=== PATIENT | male | born 1960 | race Caucasian/White ===

== ENCOUNTER 2016-10-29 12:31 | Emergency (ER) | payer OTHER ==
[2016-10-29 13:17] VITALS: TEMP 98.2
[2016-10-29] MEDS ORDERED: SODIUM CHLORIDE 0.9% 1,000 ML IV STA (14:27)
[2016-10-29] MEDS ORDERED: SODIUM CHLORIDE 0.9% 500 ML IV STA (14:27)
[2016-10-29] MEDS ORDERED: PANTOPRAZOLE 40 MG/10 ML VIAL IVP STA (14:27)
[2016-10-29] MEDS ORDERED: ONDANSETRON 4 MG/2 ML VIAL IVP STA (14:27)
[2016-10-29 15:46] LABS: Basophils # (A) 0.2 k/uL (0-0.2); Basophils % (A) 2 %; CHCM 35.3; Eosinophils # (A) 0.2 k/uL (0-0.7); Eosinophils % (A) 2 %; HCT 53.3 % (39.0-53.0); HDW 2.19; HGB 18.3 gm/dL (13.0-17.5); Luc # (Auto) 0.15; Luc % (Auto) 2; Lymphocytes # (A) 1.5 k/uL (1.0-4.8); Lymphocytes % (A) 15 %; MCH 32.3 pg (25.0-35.0); MCHC 34.3 g/dL (31.0-37.0); MCV 94.1 fL (80.0-100.0); Mean Platelet Volume 6.4; Monocytes # (A) 0.6 k/uL (0-1.0); Monocytes % (A) 6 %; Neutrophils # (A) 7.6 k/uL (1.3-7.7); Neutrophils % (A) 74 %; RBC 5.66 m/uL (4.30-5.90); RDW 13.3 % (11.5-15.5); WBC 10.2 k/uL (3.8-10.6); WBC (Perox) 9.85
--- NOTE | 2016-10-29 15:52 | ED ---
General Adult HPI - General Chief complaint: GI Bleed Stated complaint: Male Time Seen by Provider: 10/29/16 14:27 Source: patient, RN notes reviewed, old records reviewed Mode of arrival: ambulatory Limitations: no limitations - History of Present Illness Initial comments: This is a 56-year-old male here for evaluation of possible GI bleed. Blood in her stool. Patient's blood there is no prior history of similar issues. No history of colonoscopy. Patient states he does occasionally of hemorrhoids, consider anemia a bleeding hemorrhoid. Patient states he is having bright red blood mainly when he wipes but also in his stool. No lightheadedness dizziness or weakness - Related Data Home Medications Medication Instructions Recorded Confirmed Albuterol Inhaler [Ventolin Hfa 1 - 2 puff INHALATION RT-Q6H PRN 10/29/16 Inhaler] Budesonide/Formoterol Fumarate 2 puff INHALATION RT-BID 10/29/16 10/29/16 [Symbicort 160-4.5 Mcg Inhaler] Omeprazole 20 mg PO DAILY 10/29/16 10/29/16 Allergies Allergy/AdvReac Type Severity Reaction Status Date / Time No Known Allergies Allergy Verified 10/29/16 14:27 Review of Systems ROS Statement: Those systems with pertinent positive or pertinent negative responses have been documented in the HPI. ROS Other: All systems not noted in ROS Statement are negative. Past Medical History Past Medical History: COPD History of Any Multi-Drug Resistant Organisms: None Reported Past Surgical History: Orthopedic Surgery Past Psychological History: No Psychological Hx Reported Smoking Status: Current every day smoker Past Alcohol Use History: Daily Past Drug Use History: Marijuana General Exam Limitations: no limitations General appearance: alert, in no apparent distress Head exam: Present: atraumatic, normocephalic, normal inspection Eye exam: Present: normal appearance, PERRL, EOMI. Absent: scleral icterus, conjunctival injection, periorbital swelling ENT exam: Present: normal exam, mucous membranes moist Neck exam: Present: normal inspection. Absent: tenderness, meningismus, lymphadenopathy Respiratory exam: Present: normal lung sounds bilaterally. Absent: respiratory distress, wheezes, rales, rhonchi, stridor Cardiovascular Exam: Present: regular rate, normal rhythm, normal heart sounds. Absent: systolic murmur, diastolic murmur, rubs, gallop, clicks GI/Abdominal exam: Present: soft, normal bowel sounds. Absent: distended, tenderness, guarding, rebound, rigid Extremities exam: Present: normal inspection, full ROM, normal capillary refill. Absent: tenderness, pedal edema, joint swelling, calf tenderness Back exam: Present: normal inspection Neurological exam: Present: alert, oriented X3, CN II-XII intact Psychiatric exam: Present: normal affect, normal mood Skin exam: Present: warm, dry, intact, normal color. Absent: rash Course Vital Signs 10/29/16 10/29/16 13:13 16:31 Temperature 98.2 F 98.2 F Pulse Rate 89 85 Respiratory 18 16 Rate Blood Pressure 186/96 174/96 O2 Sat by Pulse 95 94 L Oximetry - Reevaluation(s) Reevaluation #1: Patient is without bleeding here in the emergency room Medical Decision Making - Medical Decision Making 56 male the ER for evaluation of possible GI bleed. Lab work is normal, patient does have hemorrhoids, patient will be discharged home - Lab Data Result diagrams: 10/29/16 15:01 10/29/16 14:50 Lab Results 10/29/16 10/29/16 10/29/16 Range/Units 14:50 14:50 14:50 WBC (3.8-10.6) k/uL RBC (4.30-5.90) m/uL Hgb (13.0-17.5) gm/dL Hct (39.0-53.0) % MCV (80.0-100.0) fL MCH (25.0-35.0) pg MCHC (31.0-37.0) g/dL RDW (11.5-15.5) % Plt Count (150-450) k/uL Neutrophils % % Lymphocytes % % Monocytes % % Eosinophils % % Basophils % % Neutrophils # (1.3-7.7) k/uL Lymphocytes # (1.0-4.8) k/uL Monocytes # (0-1.0) k/uL Eosinophils # (0-0.7) k/uL Basophils # (0-0.2) k/uL PT 10.8 (9.0-12.0) sec INR 1.1 (<1.1) APTT 27.2 (22.0-30.0) sec Sodium 140 (137-145) mmol/L Potassium 4.8 (3.5-5.1) mmol/L Chloride 104 (98-107) mmol/L Carbon Dioxide 24 (22-30) mmol/L Anion Gap 12 mmol/L BUN 6 L (9-20) mg/dL Creatinine 0.75 (0.66-1.25) mg/dL Est GFR (MDRD) Af Amer >60 (>60 ml/min/1.73 sqM) Est GFR (MDRD) Non-Af >60 (>60 ml/min/1.73 sqM) Glucose 88 (74-99) mg/dL Calcium 10.2 (8.4-10.2) mg/dL Magnesium 2.0 (1.6-2.3) mg/dL Total Bilirubin 1.0 (0.2-1.3) mg/dL AST 81 H (17-59) U/L ALT 81 H (21-72) U/L Alkaline Phosphatase 114 (38-126) U/L Total Creatine Kinase 679 H (55-170) U/L CK-MB (CK-2) 12.2 H* (0.0-2.4) ng/mL CK-MB (CK-2) Rel Index 1.8 Troponin I <0.012 (0.000-0.034) ng/mL Total Protein 8.6 H (6.3-8.2) g/dL Albumin 5.1 H (3.5-5.0) g/dL Lipase 133 (23-300) U/L Blood Type Blood Type Recheck Antibody Screen Spec Expiration Date 10/29/16 10/29/16 Range/Units 14:50 15:01 WBC 10.2 (3.8-10.6) k/uL RBC 5.66 (4.30-5.90) m/uL Hgb 18.3 H (13.0-17.5) gm/dL Hct 53.3 H (39.0-53.0) % MCV 94.1 (80.0-100.0) fL MCH 32.3 (25.0-35.0) pg MCHC 34.3 (31.0-37.0) g/dL RDW 13.3 (11.5-15.5) % Plt Count 352 (150-450) k/uL Neutrophils % 74 % Lymphocytes % 15 % Monocytes % 6 % Eosinophils % 2 % Basophils % 2 % Neutrophils # 7.6 (1.3-7.7) k/uL Lymphocytes # 1.5 (1.0-4.8) k/uL Monocytes # 0.6 (0-1.0) k/uL Eosinophils # 0.2 (0-0.7) k/uL Basophils # 0.2 (0-0.2) k/uL PT (9.0-12.0) sec INR (<1.1) APTT (22.0-30.0) sec Sodium (137-145) mmol/L Potassium (3.5-5.1) mmol/L Chloride (98-107) mmol/L Carbon Dioxide (22-30) mmol/L Anion Gap mmol/L BUN (9-20) mg/dL Creatinine (0.66-1.25) mg/dL Est GFR (MDRD) Af Amer (>60 ml/min/1.73 sqM) Est GFR (MDRD) Non-Af (>60 ml/min/1.73 sqM) Glucose (74-99) mg/dL Calcium (8.4-10.2) mg/dL Magnesium (1.6-2.3) mg/dL Total Bilirubin (0.2-1.3) mg/dL AST (17-59) U/L ALT (21-72) U/L Alkaline Phosphatase (38-126) U/L Total Creatine Kinase (55-170) U/L CK-MB (CK-2) (0.0-2.4) ng/mL CK-MB (CK-2) Rel Index Troponin I (0.000-0.034) ng/mL Total Protein (6.3-8.2) g/dL Albumin (3.5-5.0) g/dL Lipase (23-300) U/L Blood Type A Positive Blood Type Recheck CABO Indicated Antibody Screen NEGATIVE Spec Expiration Date 10/29/2016 - 1550 Disposition Clinical Impression: Gastrointestinal hemorrhage, Hemorrhoids Disposition: HOME SELF-CARE Condition: Good Instructions: Gastrointestinal Bleeding (ED), Hemorrhoids (ED) Referrals: None,Stated [Primary Care Provider] - 1-2 days
[2016-10-29 15:56] LABS: INR 1.1 (<1.1); Partial Thromboplastin Time 27.2 sec (22.0-30.0); Prothrombin Time 10.8 sec (9.0-12.0)
[2016-10-29 15:57] LABS: ALT 81 U/L (21-72); AST 81 U/L (17-59); Alkaline Phosphatase 114 U/L (38-126); Anion Gap 12 mmol/L; Blood Urea Nitrogen 6 mg/dL (9-20); Calcium 10.2 mg/dL (8.4-10.2); Carbon Dioxide 24 mmol/L (22-30); Chloride 104 mmol/L (98-107); Glucose 88 mg/dL (74-99); Non-African American GFR(MDRD) >60 (>60 ml/min/1.73 sqM); Potassium 4.8 mmol/L (3.5-5.1); Sodium 140 mmol/L (137-145); Total Protein 8.6 g/dL (6.3-8.2)
[2016-10-29 16:09] LABS: Creatine Kinase 679 U/L (55-170)
[2016-10-29 16:23] LABS: Troponin I <0.012 ng/mL (0.000-0.034)
[2016-10-29 16:32] VITALS: BP 174/96; PULSE 85; RESP 16
[2016-10-29 16:33] LABS: Creatine Kinase MB 12.2 ng/mL (0.0-2.4)
== END 2016-10-29 16:32 | disposition home or self-care (01) ==
LOC: EC 12:31
DX: K92.2 Gastrointestinal hemorrhage, unspecified (principal); K64.9 Unspecified hemorrhoids; J44.9 Chronic obstructive pulmonary disease, unspecified; F17.200 Nicotine dependence, unspecified, uncomplicated; Z79.51 Long term (current) use of inhaled steroids; Z79.899 Other long term (current) drug therapy
CPT/HCPCS: 36415; 86900; 86901; 80053; 82550; 82553; 83690; 83735; 84484; 85025; 85610; 85730; 86850; 99284; 96374; 96375; 96361; C9113

== ENCOUNTER 2017-05-29 12:15 | Day surgery (SDC) | payer BC, OTHER ==
[2017-05-28 13:40] VITALS: BMI 21.4
[~2017-05-29 12:15] MED LIST: LACTATED RINGERS 1,000 ML IV SCH; Pre Op ABX Message 1 EACH MISC MISCELLANE ONE
[2017-05-29] MEDS ORDERED: SUCCINYLCHOLINE CHLORIDE 100 MG/5 ML SYR IV ONE (13:34)
[2017-05-29] MEDS ORDERED: HYDROmorphone (PF) 1 MG/ML ONE (13:34)
[2017-05-29] MEDS ORDERED: fentaNYL (PF) 50 MCG/ML 2 ML AMP ONE (13:34)
[2017-05-29] MEDS ORDERED: LIDOCAINE 1% INJ 10MG/ML (20 ML MDV) ONE (13:34)
[2017-05-29] MEDS ORDERED: PROPOFOL 10 MG/ML 20 ML VIAL IV ONE (13:34)
[2017-05-29] MEDS ORDERED: MIDAZOLAM 2 MG/2 ML VIAL ONE (13:34)
[2017-05-29] MEDS ORDERED: BUPIVACAIN-EPI 0.5%-1:200,000 30 ML VIAL SQ ONE ×2 (14:21)
--- NOTE | 2017-05-29 14:40 | P.OP ---
Date of Procedure: 05/29/17 Preoperative Diagnosis: Screening. Prolapsing internal hemorrhoids. Postoperative Diagnosis: Screening. Prolapsing internal and external hemorrhoids. Procedure(s) Performed: Colonoscopy. Anesthesia: MAC Surgeon: Florin Culp Estimated Blood Loss (ml): 0 Pathology: none sent Condition: stable Disposition: same day Indications for Procedure: Screening. Large prolapsing internal and external hemorrhoids. Operative Findings: Large degree 4 quadrant internal and external hemorrhoids prolapsing. Description of Procedure: With the patient in the left lateral position rectal digital examination was normal in that there were no palpable masses or prostatic masses but he had some large prolapsing internal and external Hemorrhoids. 2 in the right and 2 on the left. The. One was irreducible on the left lateral aspect. The video colonoscope was inserted transanally and advanced all the way to the cecum which was entered without visualized the. The ileocecal valve and appendiceal orifice were well seen. The prep was good. During fourth degree internal and external prolapsing hemorrhoids. Otherwise fairly normal colonoscopy.
--- NOTE | 2017-05-29 14:45 | P.OP ---
Date of Procedure: 05/29/17 Preoperative Diagnosis: Large prolapsing internal and external hemorrhoids. Postoperative Diagnosis: Four-quadrant right and left the large prolapsing internal and external hemorrhoids Procedure(s) Performed: Internal and external hemorrhoidectomy with the Harmonic scalpel Anesthesia: EDY Surgeon: Florin Culp Estimated Blood Loss (ml): 1 Pathology: other (Hemorrhoids) Condition: stable Disposition: same day Indications for Procedure: The patient has long-standing prolapsing internal and external hemorrhoids very uncomfortable bleeding and persistently prolapse. Internal and external hemorrhoidectomy was recommended since he hasn't responded to outpatient treatment and informed consent was obtained procedure is have been explained to him including potential complication particular bleeding infection recurrence pain leakage constipation surrounding injury etc. he understood and agree to proceed. Colonoscopy was otherwise unremarkable. Operative Findings: As above. There were 4 columns of hemorrhoids to the right side and from the left. Description of Procedure: After completion of his colonoscopy patient was left in the left lateral position little more towards the left side prepped with Betadine and draped with the buttocks been taped apart. Local anesthetic Marcaine 0.5% with epinephrine was infiltrated into the skin and submucosal and subcutaneous tissue circumferentially. Anal retractor was then placed. Bundle at the 9 o' clock position on the left lateral aspect was grasped with an Allis clamp externally and excised completely with an oval-shaped incision using the Harmonic scalpel preserving the sphincter musculature. The base of the hemorrhoid was suture ligated with 3-0 Vicryl suture ligature. At the 7 o'clock position on the left anterior position was similarly excised and suture ligated as were the hemorrhoidal bundles at the 1:00 and 5 o'clock position on the right side. Hemostasis was good and the field was dry at the end of the procedure. Dressings were applied. All counts were correct. Blood loss was negligible. Patient remained stable and was transferred to the recovery room in good and stable condition. Plan - Discharge Summary New Discharge Prescriptions: No Action Albuterol Inhaler [Ventolin Hfa Inhaler] 2 puff INHALATION RT-Q6H PRN PRN Reason: Shortness Of Breath Umeclidinium Brm/Vilanterol Tr [Anoro Ellipta 62.5-25 Mcg INH] 1 puff INHALATION DAILY Ipratropium/Albuterol Sulfate [Combivent Respimat Inhaler] 1 puff INHALATION QID Ranitidine HCl [Zantac] 150 mg PO BID Discharge Medication List Albuterol Inhaler [Ventolin Hfa Inhaler] 2 puff INHALATION RT-Q6H PRN 10/29/16 [ History] Ipratropium/Albuterol Sulfate [Combivent Respimat Inhaler] 1 puff INHALATION QID 05/28/17 [History] Ranitidine HCl [Zantac] 150 mg PO BID 05/28/17 [History] Umeclidinium Brm/Vilanterol Tr [Anoro Ellipta 62.5-25 Mcg INH] 1 puff INHALATION DAILY 05/28/17 [History]
[2017-05-29 15:03] VITALS: TEMP 98
[2017-05-29 15:08] VITALS: RESP 16
[2017-05-29 15:59] VITALS: BP 169/110; PULSE 77
[2017-05-29] MEDS ORDERED: HYDROcodone/APAP 7.5-325MG 1 EACH TAB PO ONE (16:20)
[2017-05-29] MEDS ORDERED: LACTATED RINGERS 1,000 ML IV ONE (16:35)
== END 2017-05-29 17:00 | disposition home or self-care (01) ==
LOC: ORWHC2ENDO 12:15
PROVIDERS: ATTEND Surgery
DX: K64.3 Fourth degree hemorrhoids (principal); K64.8 Other hemorrhoids; R19.7 Diarrhea, unspecified; K59.00 Constipation, unspecified; J44.9 Chronic obstructive pulmonary disease, unspecified; I10 Essential (primary) hypertension; F17.210 Nicotine dependence, cigarettes, uncomplicated; Z79.51 Long term (current) use of inhaled steroids; Z79.899 Other long term (current) drug therapy
CPT/HCPCS: 45378; 46260; 88304; J2250; J2001; J3010; J1170; J0330; J2704

== ENCOUNTER 2017-07-05 10:34 | Emergency (ER) | payer OTHER ==
[2017-07-05] MEDS ORDERED: DIPH,PERTUS(ACELL)TETVAC-LF 0.5 ML VIAL IM ONE (11:48)
--- NOTE | 2017-07-05 11:50 | ED ---
Wound/Laceration HPI - General Chief Complaint: Wound/Laceration Stated Complaint: Cut on buttcheek Time Seen by Provider: 07/05/17 11:23 Source: patient, RN notes reviewed, old records reviewed Mode of arrival: ambulatory Limitations: no limitations - History of Present Illness Initial Comments: 57-year-old male presents emergency room to plan of right index laceration. Patient reports he tripped over his cord, and landed with his right buttocks on the vent. Patient reports that he has a laceration the area. Patient reports he does not know last tetanus tetanus shot. He denies any pain with ambulation. Patient ports the pain is only over the laceration. Denies any other symptoms. - Related Data Home Medications Medication Instructions Recorded Confirmed Albuterol Inhaler [Ventolin Hfa 2 puff INHALATION RT-Q6H PRN 10/29/16 07/05/17 Inhaler] Ipratropium/Albuterol Sulfate 1 puff INHALATION RT-QID 05/28/17 07/05/17 [Combivent Respimat Inhaler] Ranitidine HCl [Zantac] 150 mg PO BID 05/28/17 07/05/17 Umeclidinium Brm/Vilanterol Tr 1 puff INHALATION RT-DAILY 05/28/17 07/05/17 [Anoro Ellipta 62.5-25 Mcg INH] Allergies Allergy/AdvReac Type Severity Reaction Status Date / Time No Known Allergies Allergy Verified 07/05/17 11:20 Review of Systems ROS Statement: Those systems with pertinent positive or pertinent negative responses have been documented in the HPI. ROS Other: All systems not noted in ROS Statement are negative. Past Medical History Past Medical History: COPD History of Any Multi-Drug Resistant Organisms: None Reported Past Surgical History: Orthopedic Surgery Past Psychological History: No Psychological Hx Reported Smoking Status: Current every day smoker Past Alcohol Use History: Daily Past Drug Use History: None Reported General Exam - General Exam Comments Initial Comments: Is a 57-year-old male. No distress. Limitations: no limitations General appearance: alert, in no apparent distress Head exam: Present: atraumatic, normocephalic, normal inspection Eye exam: Present: normal appearance, PERRL, EOMI. Absent: scleral icterus, conjunctival injection, periorbital swelling ENT exam: Present: mucous membranes moist Neck exam: Present: normal inspection Respiratory exam: Present: normal lung sounds bilaterally. Absent: respiratory distress, rhonchi, stridor Cardiovascular Exam: Present: regular rate, normal rhythm, normal heart sounds. Absent: systolic murmur, diastolic murmur, rubs, gallop, clicks GI/Abdominal exam: Present: soft, normal bowel sounds. Absent: distended, tenderness, guarding, rebound, rigid Rectal exam: Present: other (is a 3 cm laceration over the right buttocks.) exam: Present: normal inspection Extremities exam: Present: normal inspection, full ROM, normal capillary refill. Absent: tenderness, pedal edema, joint swelling, calf tenderness Back exam: Present: normal inspection Neurological exam: Present: alert, oriented X3, CN II-XII intact Psychiatric exam: Present: normal affect, normal mood Skin exam: Present: warm, dry, intact, normal color. Absent: rash Course Vital Signs 07/05/17 11:15 Temperature 98.1 F Pulse Rate 98 Respiratory 18 Rate Blood Pressure 156/104 O2 Sat by Pulse 95 Oximetry Procedures - Laceration Laceration #1 Indication: laceration Site: buttock (rgith buttock) Size (cm): 3 Description: linear Depth: simple, single layer Anesthetic Used: lidocaine 1% Anesthesia Technique: local infiltration Amount (mls): 3 Pre-repair: wound explored, irrigated extensively Type of Sutures: nylon Size of Sutures: 4-0 Number of Sutures: 7 Technique: simple, interrupted Patient Tolerated Procedure: well, no complications Medical Decision Making - Medical Decision Making 57-year-old male presents emergency room tonight she bled laceration over his right buttocks. Patient reports he tripped and fell in his buttocks was cut by the heat register. Patient reports it would not stop bleeding. He was given an updated tetanus shot. Wound was thoroughly irrigated with saline and Betadine. Closed with 7 sutures. Discussed monitoring for any signs of infection including redness swelling or drainage. Discussed any sutures removed in approximately 10 days. Bleeding was well controlled, wound was well proximal pain. Patient is history plan will comply. Return parameters were discussed. Disposition Clinical Impression: Laceration of right buttock Disposition: HOME SELF-CARE Condition: Good Instructions: Care For Your Stitches (ED), Laceration (ED) Additional Instructions: Please return to the emergency room in 8-10 days to have sutures removed. Please leave wound covered for the first 24-48 hours and then leave open to air after that time. Please use clean soap and water to clean the suture area to prevent scabbing over the top of your sutures. Please watch for any signs of infection which may include but not limited to increased pain, swelling, redness , fever or chills. Please return to the emergency room if any signs of infection do occur. Please return to the emergency room for any other concerns or complications. Referrals: Lizy Bingham MD [Primary Care Provider] - 1-2 days Time of Disposition: 11:49
[2017-07-05 16:36] VITALS: BP 158/106; PULSE 86; RESP 18; TEMP 97.7
== END 2017-07-05 12:46 | disposition home or self-care (01) ==
LOC: EC 10:34
DX: S31.811A Laceration without foreign body of right buttock, initial encounter (principal); J44.9 Chronic obstructive pulmonary disease, unspecified; F17.200 Nicotine dependence, unspecified, uncomplicated; Z79.899 Other long term (current) drug therapy; Z23 Encounter for immunization; W18.09XA Striking against other object with subsequent fall, initial encounter
CPT/HCPCS: 12002; 90471; 90715; 99283

== ENCOUNTER → 2018-01-30 | Outpatient (CLI) | payer OTHER ==
--- NOTE | 2018-01-30 14:19 | US ---
EXAMINATION TYPE: US venous doppler duplex UE LT DATE OF EXAM: 01/30/2018 COMPARISON: NONE CLINICAL HISTORY: R22.32 LUMP OF SKIN OF LT UPPER EXT. Left upper medial arm palpable x 2 years with no known trauma to arm. SIDE PERFORMED: Left arm Left Arm: Negative for DVT. At palpable left upper medial arm a solid, hypoechoic oval mass is noted = 1.5 x 1.6 x 1.3cm with internal vascularity seen. Grayscale, color doppler, spectral doppler imaging performed of the deep veins of the left upper extr emity. There is normal flow, compressibility and vascular waveforms. IMPRESSION: 1. No sonographic evidence of deep venous thrombosis within the left upper extremity. 2. Solid mass at the area of the palpable abnormality measuring 1.6 cm that has been present per charles ent history for 2 years. However this has peripheral vascularity and does not appear as a simple lipo ma sonographically and therefore consideration for further evaluation with enhanced MRI could be perf ormed for more definitive characterization and to determine the need for biopsy.
== END | disposition home or self-care (01) ==
LOC: RADUSWWP 12:03
PROVIDERS: ATTEND Internal Medicine
DX: R22.32 Localized swelling, mass and lump, left upper limb (principal)

== ENCOUNTER → 2018-05-21 | Outpatient (CLI) | payer OTHER ==
[2018-05-20 15:01] VITALS: BMI 21.4
[2018-05-21 13:18] VITALS: BP 171/98; PULSE 80; RESP 16
--- NOTE | 2018-05-21 14:26 | P.PAINPG ---
Subjective Progress Note Date: 05/21/18 Principal diagnosis: Left cervical radiculopathy This is a very pleasant 58 showed gentleman seen today in consultation. He had a long-standing history of a lump growing in his medial upper left arm. Eventually, this was treated surgically. After the surgical treatment immediately he woke up with significant shooting and burning pain down his left arm into his ring finger and pinky finger. He reports that the intensity of this has decreased significantly since the surgery 2 months ago. He was initially trialed on opiates which afforded him no benefit. He then was treated with gabapentin and Celebrex which she found to be helpful. He was referred to see a neurosurgeon however that neurosurgeon only treated spine disorders. He has not seen any peripheral clinic specialist since then. Objective - Vital Signs Vital signs: Vital Signs Temp Pulse 80 05/21/18 12:59 Resp 16 05/21/18 12:59 BP 171/98 05/21/18 12:59 Pulse Ox Intake & Output 05/20/18 05/21/18 05/21/18 18:59 06:59 18:59 Weight 83.915 kg - Exam General: The patient is alert and oriented. Patient is not sedated Patient answers all question appropriately. Cardiac: Heart is regular in rate and rhythm Respiratory: Clear to auscultation. No audible wheezes. Abdomen: Soft nontender nondistended. Upper extremity: Significant ecchymotic area in his left upper shoulder and biceps. He treats this to a recent trauma which has nothing to do with his current injury. There is also a a lump present in the medial left arm. I do not touch this secondary to patient request. Allodynia is present in his fourth and fifth finger on the left side. 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 Lower extremities: Strength is normal bilaterally. Sensation is normal bilaterally. Reflexes are preserved and symmetric bilaterally. Straight leg raise is negative bilaterally. Assessment and Plan (1) Mass of left upper extremity Narrative/Plan: Plan of Care 1. Medications: I've advised the patient to increase his gabapentin from 300 mg by mouth twice a day 2 600 mg by mouth 3 times a day in a stepwise fashion. I' ve advised him of the risks and benefits of this medication. I have advised him to decrease his alcohol consumption. I also advised him to start folate as well as B12 and a multivitamin. I have reviewed the patient's MAPS report and it reveals expected results. Patient has signed an opiate agreement as well as opiate consent for treatment in our clinic. They understand the risks and benefits of opiate medications. They are aware of the potential for addiction. 2. Interventions: None indicated 3. Referrals: Patient is referred back to his primary care physician for a referral to see a peripheral clinic specialist 4. Testing: None ordered 5. Follow-up: One month for reevaluation. Current Visit: Yes Status: Acute Code(s): R22.32 - LOCALIZED SWELLING, MASS AND LUMP, LEFT UPPER LIMB SNOMED Code(s): 598727642 (2) Neuropathy of left upper extremity Current Visit: Yes Status: Acute Code(s): G56.92 - UNSPECIFIED MONONEUROPATHY OF LEFT UPPER LIMB SNOMED Code(s): 405448586 PQRS Measure Charge Sheet Measure #130: Documentation of Current Meds in Medical Chart: Patient's medications documented in chart Measure #226: Tobacco Use: Screen & Cessation Intervention: Pt screened for tobacco use AND intervention given Measure #111: Pneumonia Vaccination: Pneumococcal vaccine NOT administered or previously given Measure #47: Advance Care Plan: Advance care planning discussed & documented, pt chose/unable to give Measure #412: Opioid Treatment Agreement: No documentation of signed opioid treatment agreement Measure #408: Opioid Therapy Follow-up Evaluation: Patient had NO f/u eval minimum every 3 months during opioid therapy Measure #317: Preventitive Care & Scrn High Bld Press & F/U: Normal blood pressure, f/u not required Measure #128: Body Mass Index (BMI) Screening & Follow-up: BMI documented BELOW normal parameters - f/u documented Measure #131: Pain Assessment & Follow-up: Pain positive & plan documented Measure #431: Unhealthy Alcohol Use Preventative Care & Scrn: Patient identified as unhealthy alcohol user; counseling given PQRS Narrative: Smoking Status Current every day smoker Do You Want the Pneumonia No Vaccine AT THIS TIME? Blood Pressure 171/98 Pain Intensity [Left Lower Arm 6 ] Scale Used Numeric (1 - 10) Hx Alcohol Use (MH) Yes Home Medications: Ambulatory Orders Albuterol Inhaler [Ventolin Hfa Inhaler] 2 puff INHALATION RT-Q6H PRN 10/29/16 Ipratropium/Albuterol Sulfate [Combivent Respimat Inhaler] 1 puff INHALATION RT- QID 05/28/17 Ranitidine HCl [Zantac] 150 mg PO BID 05/28/17 Celecoxib [CeleBREX] 200 mg PO DAILY 05/20/18 Gabapentin [Neurontin] 300 mg PO BID 05/20/18 [place] [facility] Supple. 4 tab SL DAILY 05/20/18 Controlled Substance Measures - Controlled Substance Measures Is patient prescribed a controlled substance at discharge?: No
== END | disposition home or self-care (01) ==
LOC: PNWHC3 12:51
PROVIDERS: ATTEND Pain Medicine Pain Medicine
DX: G56.92 Unspecified mononeuropathy of left upper limb (principal); R22.32 Localized swelling, mass and lump, left upper limb; F17.200 Nicotine dependence, unspecified, uncomplicated; Z98.890 Other specified postprocedural states; Z79.1 Long term (current) use of non-steroidal anti-inflammatories (NSAID); Z79.899 Other long term (current) drug therapy
CPT/HCPCS: 99211

== ENCOUNTER → 2018-06-20 | Outpatient (CLI) | payer OTHER ==
[2018-06-20 13:51] VITALS: BP 191/112; PULSE 91; RESP 16
--- NOTE | 2018-06-21 11:08 | P.PN ---
Subjective Progress Note Date: 06/20/18 This is visit for this 58 years old male, He had a long-standing history of a lump growing in his medial upper left arm. Eventually, this was treated surgically. After the surgical treatment immediately he woke up with significant shooting and burning pain down his left arm into his ring finger and pinky finger. He reports that the intensity of this has decreased significantly since the surgery 2 months ago. He was initially trialed on opiates which afforded him no benefit. He then was treated with gabapentin and Celebrex which found to be helpful. patient reported that he continued to have severe numbness and tingling sensation at the medial aspect of his left upper extremity Physical Examinations : 1-Constitutiona : Cooperative , not in acute distress . 2-HEENT : nech ; supple , no Lymphadenopathy , normal thyroid size . eyes : no ptosis , no icterus, no photophobia . ENT : normal of hearing , normal oropharynx , no Thrush . 3- Respiratory : Chest clear to auscultations Bilaterally , no wheezing , no Rhonchi . 4- Cardiovascular : regular rate and rhythem , S1 , S2 , no S3 , no S4. 5- Gastrointestinal : abdomen soft no tenderness , bowel sounds , no organomegally . 6- Genitourinary : Defferred . 7- neurologic : Cranial nerve II to XII intact , no focal neurological deffecit . 8-psychatric : alert , oriented X 3 , appropriate affect , intact judgment and insight . 9-Lymphatic : no Lymphadenopathy . 10- musculoskeltal : allodynia and the medial aspect of the left humerus, and there is a small mass measuring 1-1/2-1-1/2 inch the medial aspect of the left humerus This is tender no discharge, erythema Assessment and Plan (1) Mass of left upper extremity Narrative/Plan: Plan of Care 1. Medications: continue Neurontin 600 mg 3 times a day , Celebrex 200 mg daily. I've advised him of the risks and benefits of this medication. 3. 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 Testing: None ordered 5. Follow-up:when necessary PQRS Measure Charge Sheet Measure #130: Documentation of Current Meds in Medical Chart: Patient's medications documented in chart Measure #226: Tobacco Use: Screen & Cessation Intervention: Pt screened for tobacco use AND intervention given Measure #111: Pneumonia Vaccination: Pneumococcal vaccine NOT administered or previously given Measure #47: Advance Care Plan: Advance care planning discussed & documented, pt chose/unable to give Measure #412: Opioid Treatment Agreement: No documentation of signed opioid treatment agreement Measure #408: Opioid Therapy Follow-up Evaluation: Patient had NO f/u eval minimum every 3 months during opioid therapy Measure #317: Preventitive Care & Scrn High Bld Press & F/U: patient is hypertensive, and patient advised to follow-up with the emergency room and his primary care Measure #128: Body Mass Index (BMI) Screening & Follow-up: BMI documented , within normal parameters - f/u documented Measure #131: Pain Assessment & Follow-up: Pain positive & plan documented Measure #431: Unhealthy Alcohol Use Preventative Care & Scrn: Patient identified as unhealthy alcohol user; counseling given PQRS Narrative: - Controlled Substance Measures Is patient prescribed a controlled substance at discharge?: No Objective - Vital Signs Vital signs: Vital Signs Temp Pulse 91 06/20/18 13:40 Resp 16 06/20/18 13:40 BP 191/112 06/20/18 13:40 Pulse Ox 96 06/20/18 13:40 Intake & Output 06/20/18 06/21/18 06/21/18 18:59 06:59 18:59 Weight 83.915 kg
== END | disposition home or self-care (01) ==
LOC: PNWHC3 13:01
PROVIDERS: ATTEND Specialist
DX: R22.32 Localized swelling, mass and lump, left upper limb (principal); Z79.899 Other long term (current) drug therapy
CPT/HCPCS: 99211

== ENCOUNTER → 2018-08-06 | Outpatient (CLI) | payer OTHER ==
[2018-08-06 11:35] LABS: Basophils # (A) 0.1 k/uL (0-0.2); Basophils % (A) 1 %; Eosinophils # (A) 0.2 k/uL (0-0.7); Eosinophils % (A) 2 %; HCT 50.4 % (39.0-53.0); HGB 16.9 gm/dL (13.0-17.5); Lymphocytes # (A) 2.3 k/uL (1.0-4.8); Lymphocytes % (A) 25 %; MCH 30.4 pg (25.0-35.0); MCHC 33.5 g/dL (31.0-37.0); MCV 90.7 fL (80.0-100.0); Monocytes # (A) 0.6 k/uL (0-1.0); Monocytes % (A) 6 %; Neutrophils # (A) 5.9 k/uL (1.3-7.7); Neutrophils % (A) 64 %; Platelet Count 447 k/uL (150-450); RBC 5.56 m/uL (4.30-5.90); RDW 14.2 % (11.5-15.5); WBC 9.2 k/uL (3.8-10.6)
[2018-08-06 16:40] LABS: Albumin 4.7 g/dL (3.80-4.90); Albumin/Globulin Ratio 2.47 (1.60-3.17); Calcium 9.7 mg/dL (8.7-10.3); Globulin 1.9 g/dL (1.6-3.3); Potassium 5.2 mmol/L (3.5-5.5); Total Bilirubin 0.5 mg/dL (0.2-1.2); Total Protein 6.6 g/dL (6.2-8.2)
[2018-08-06 16:48] LABS: T4, Free (Free Thyroxine) 0.9 ng/dL (0.80-1.80)
== END | disposition home or self-care (01) ==
LOC: LABWHC1 10:06
PROVIDERS: ATTEND Physician Assistant
DX: R41.3 Other amnesia (principal); R20.2 Paresthesia of skin
CPT/HCPCS: 36415; 80053; 82306; 82607; 84207; 84439; 84443; 84481; 85025

== ENCOUNTER 2022-03-14 10:13 | Emergency (ER) | payer OTHER ==
[2022-03-14 11:01] VITALS: TEMP 98
[2022-03-14 15:47] VITALS: BP 183/88; PULSE 79; RESP 18
[2022-03-14] MEDS ORDERED: SODIUM CHLORIDE 0.9% 500 ML 500 ML IV STA (16:01)
--- NOTE | 2022-03-14 16:04 | ED ---
Weakness HPI - General Chief complaint: Weakness Stated complaint: trouble walking Time Seen by Provider: 03/14/22 15:35 Source: patient Mode of arrival: ambulatory Limitations: no limitations - History of Present Illness MD Complaint: focal weakness, tingling, difficulty walking Onset/Timin -: week(s) Location: LLE, RLE Severity: moderate Quality: other (Burning) Consistency: constant Improves with: none Worsens with: movement, exertion Associated Symptoms: denies other symptoms - Related Data Home Medications Medication Instructions Recorded Confirmed Albuterol Inhaler [Ventolin Hfa 2 puff INHALATION RT-Q6H PRN 10/29/16 05/20/18 Inhaler] Ipratropium/Albuterol Sulfate 1 puff INHALATION RT-QID 05/28/17 05/20/18 [Combivent Respimat Inhaler] Ranitidine HCl [Zantac] 150 mg PO BID 05/28/17 05/20/18 Celecoxib [CeleBREX] 200 mg PO DAILY 05/20/18 05/20/18 Gabapentin [Neurontin] 600 mg PO TID 05/20/18 05/21/18 Previous Rx's Medication Instructions Recorded Cyclobenzaprine [Flexeril] 10 mg PO TID #15 tab 03/14/22 HYDROcodone/APAP 5-325MG [Hunter 1 tab PO Q6HR PRN 3 Days #12 tab 03/14/22 5-325] Allergies Allergy/AdvReac Type Severity Reaction Status Date / Time No Known Allergies Allergy Verified 03/14/22 11:01 Review of Systems ROS Statement: Those systems with pertinent positive or pertinent negative responses have been documented in the HPI. ROS Other: All systems not noted in ROS Statement are negative. Constitutional: Reports: weakness (Bilateral lower extremity). Denies: fever, chills Eyes: Denies: vision change ENT: Denies: throat pain Respiratory: Denies: cough, dyspnea Cardiovascular: Denies: chest pain, palpitations, edema, syncope Gastrointestinal: Denies: abdominal pain, vomiting, diarrhea, constipation, melena, hematochezia Genitourinary: Denies: dysuria, hematuria, testicular pain, testicular mass Musculoskeletal: Denies: back pain, arthralgia, myalgia Skin: Denies: rash Neurological: Reports: paresthesias. Denies: headache, weakness, numbness Past Medical History Past Medical History: COPD, GERD/Reflux, Hypertension Additional Past Medical History / Comment(s): left arm pain with numbness 4th and 5 th digits with weakness left hand,partial numbness to 3rd digit left [place] d,pain with grasping objects,no longer on b/p meds History of Any Multi-Drug Resistant Organisms: None Reported Past Surgical History: Orthopedic Surgery Additional Past Surgical History / Comment(s): lump unsuccefully removed from left bicep,rt knee arthroscopic,vasectomy,hemorrhoidectiomy Past Anesthesia/Blood Transfusion Reactions: No Reported Reaction Past Psychological History: No Psychological Hx Reported Smoking Status: Current every day smoker Past Alcohol Use History: Occasional Past Drug Use History: None Reported - Past Family History Mother Family Medical History: Cancer Father Family Medical History: Cancer Sister(s) Family Medical History: Myocardial Infarction ([place]) General Exam Limitations: no limitations General appearance: alert, in no apparent distress, cachectic Head exam: Present: atraumatic, normocephalic Eye exam: Present: normal appearance, PERRL, EOMI. Absent: scleral icterus, conjunctival injection, nystagmus Neck exam: Present: normal inspection, full ROM. Absent: tenderness Respiratory exam: Present: normal lung sounds bilaterally, wheezes. Absent: respiratory distress, rales, rhonchi, stridor, accessory muscle use Cardiovascular Exam: Present: regular rate, normal rhythm, normal heart sounds. Absent: systolic murmur, diastolic murmur, rubs, gallop GI/Abdominal exam: Present: soft. Absent: distended, tenderness, guarding, rebound, rigid, mass Extremities exam: Present: normal inspection, normal capillary refill. Absent: tenderness, pedal edema, calf tenderness Back exam: Present: normal inspection. Absent: CVA tenderness (R), CVA tenderness (L), paraspinal tenderness, vertebral tenderness Neurological exam: Present: alert, oriented X3, motor sensory deficit, other (There is bilateral lower extremity weakness, left greater than right.). Absent: reflexes normal Expanded Motor strength exam: RUE: 5, LUE: 5, RLE: 5, LLE: 4 DTR: Patellar (R): 0, Patellar (L): 0 Skin exam: Present: warm, dry, intact, normal color. Absent: rash Course Vital Signs 03/14/22 03/14/22 10:59 15:45 Temperature 98 F Pulse Rate 80 79 Respiratory 20 18 Rate Blood Pressure 122/77 183/88 O2 Sat by Pulse 98 97 Oximetry EKG Findings - EKG Comments: EKG Findings:: Possible old septal infarct. - EKG Results: EKG: interpreted by KELVIN, sinus rhythm (With occasional supraventricular complex.) - Blocks, [place], Hypertrophy, ST Abn: AV and intraventricular conduction: right bundle branch block (fixed/intermittent, complete/incomplete) QRS axis and voltage: left axis deviation (-30 to -90) Medical Decision Making - Medical Decision Making This patient is 62-year-old man presenting with complaint of bilateral lower extremity pain. The workup does not reveal exact etiology though given the elevation of CPK, may be related to his statin use. At this point I was recommending the patient be admitted to have further evaluation and be seen by consultants including neurology. Explain that we could expedite having MRI and other studies while he was here in the hospital. The patient at this point is declining, stating he will have follow-up as outpatient this week. He will return here if there is any worsening of his condition or any new symptoms beginning. I did explain that workup of this nature may be time sensitive and that best outcome would require him to stay, patient expressed understanding but still would like to go home. Patient sign AMA papers - Lab Data Result diagrams: 03/14/22 16:27 03/14/22 16:01 Lab Results 03/14/22 03/14/22 03/14/22 Range/Units 16:01 16:01 16:27 WBC 5.4 (3.8-10.6) k/uL RBC 4.85 (4.30-5.90) m/uL Hgb 13.4 (13.0-17.5) gm/dL Hct 41.4 (39.0-53.0) % MCV 85.3 (80.0-100.0) fL MCH 27.7 (25.0-35.0) pg MCHC 32.5 (31.0-37.0) g/dL RDW 14.9 (11.5-15.5) % Plt Count 231 (150-450) k/uL MPV 7.9 Neutrophils % 69 % Lymphocytes % 10 % Monocytes % 15 % Eosinophils % 1 % Basophils % 3 % Neutrophils # 3.7 (1.3-7.7) k/uL Lymphocytes # 0.5 L (1.0-4.8) k/uL Monocytes # 0.8 (0-1.0) k/uL Eosinophils # 0.1 (0-0.7) k/uL Basophils # 0.1 (0-0.2) k/uL PT (9.0-12.0) sec INR (<1.2) APTT (22.0-30.0) sec D-Dimer (<0.60) mg/L FEU Sodium 132 L (137-145) mmol/L Potassium 4.2 (3.5-5.1) mmol/L Chloride 98 (98-107) mmol/L Carbon Dioxide 21 L (22-30) mmol/L Anion Gap 13 mmol/L BUN 6 L (9-20) mg/dL Creatinine 0.73 (0.66-1.25) mg/dL Est GFR (CKD-EPI)AfAm >90 (>60 ml/min/1.73 sqM) Est GFR (CKD-EPI)NonAf >90 (>60 ml/min/1.73 sqM) Glucose 115 H (74-99) mg/dL Plasma Lactic Acid Trae 1.3 (0.7-2.0) mmol/L Calcium 9.3 (8.4-10.2) mg/dL Phosphorus 3.3 (2.5-4.5) mg/dL Magnesium 1.8 (1.6-2.3) mg/dL Total Bilirubin 0.5 (0.2-1.3) mg/dL AST 85 H (17-59) U/L ALT 62 H (4-49) U/L Alkaline Phosphatase 69 (38-126) U/L Creatine Kinase 698 H (55-170) U/L CK-MB (CK-2) (0.0-2.4) ng/mL Troponin I (0.000-0.034) ng/mL Total Protein 7.0 (6.3-8.2) g/dL Albumin 4.7 (3.5-5.0) g/dL TSH 2.730 (0.465-4.680) mIU/L Urine Color Urine Appearance (Clear) Urine pH (5.0-8.0) Ur Specific [place] (1.001-1.035) Urine Protein (Negative) Urine Glucose (UA) (Negative) Urine Ketones (Negative) Urine Blood (Negative) Urine Nitrite (Negative) Urine Bilirubin (Negative) Urine Urobilinogen (<2.0) mg/dL Ur Leukocyte Esterase (Negative) Urine Opiates Screen (NotDetected) Ur Oxycodone Screen (NotDetected) Urine Methadone Screen (NotDetected) Ur Propoxyphene Screen (NotDetected) Ur Barbiturates Screen (NotDetected) U Tricyclic Antidepress (NotDetected) Ur Phencyclidine Scrn (NotDetected) Ur Amphetamines Screen (NotDetected) U Methamphetamines Scrn (NotDetected) U Benzodiazepines Scrn (NotDetected) Urine Cocaine Screen (NotDetected) U Marijuana (THC) Screen (NotDetected) Serum Alcohol <10 mg/dL 03/14/22 03/14/22 03/14/22 Range/Units 16:27 16:27 Unknown WBC (3.8-10.6) k/uL RBC (4.30-5.90) m/uL Hgb (13.0-17.5) gm/dL Hct (39.0-53.0) % MCV (80.0-100.0) fL MCH (25.0-35.0) pg MCHC (31.0-37.0) g/dL RDW (11.5-15.5) % Plt Count (150-450) k/uL MPV Neutrophils % % Lymphocytes % % Monocytes % % Eosinophils % % Basophils % % Neutrophils # (1.3-7.7) k/uL Lymphocytes # (1.0-4.8) k/uL Monocytes # (0-1.0) k/uL Eosinophils # (0-0.7) k/uL Basophils # (0-0.2) k/uL PT 11.3 (9.0-12.0) sec INR 1.0 (<1.2) APTT 22.7 (22.0-30.0) sec D-Dimer 1.04 H (<0.60) mg/L FEU Sodium (137-145) mmol/L Potassium (3.5-5.1) mmol/L Chloride (98-107) mmol/L Carbon Dioxide (22-30) mmol/L Anion Gap mmol/L BUN (9-20) mg/dL Creatinine (0.66-1.25) mg/dL Est GFR (CKD-EPI)AfAm (>60 ml/min/1.73 sqM) Est GFR (CKD-EPI)NonAf (>60 ml/min/1.73 sqM) Glucose (74-99) mg/dL Plasma Lactic Acid Trae (0.7-2.0) mmol/L Calcium (8.4-10.2) mg/dL Phosphorus (2.5-4.5) mg/dL Magnesium (1.6-2.3) mg/dL Total Bilirubin (0.2-1.3) mg/dL AST (17-59) U/L ALT (4-49) U/L Alkaline Phosphatase (38-126) U/L Creatine Kinase (55-170) U/L CK-MB (CK-2) 7.7 H (0.0-2.4) ng/mL Troponin I <0.012 (0.000-0.034) ng/mL Total Protein (6.3-8.2) g/dL Albumin (3.5-5.0) g/dL TSH (0.465-4.680) mIU/L Urine Color Light Yellow Urine Appearance Clear (Clear) Urine pH 5.5 (5.0-8.0) Ur Specific [place] 1.004 (1.001-1.035) Urine Protein Negative (Negative) Urine Glucose (UA) Negative (Negative) Urine Ketones Negative (Negative) Urine Blood Negative (Negative) Urine Nitrite Negative (Negative) Urine Bilirubin Negative (Negative) Urine Urobilinogen <2.0 (<2.0) mg/dL Ur Leukocyte Esterase Negative (Negative) Urine Opiates Screen Not Detected (NotDetected) Ur Oxycodone Screen Not Detected (NotDetected) Urine Methadone Screen Not Detected (NotDetected) Ur Propoxyphene Screen Not Detected (NotDetected) Ur Barbiturates Screen Not Detected (NotDetected) U Tricyclic Antidepress Not Detected (NotDetected) Ur Phencyclidine Scrn Not Detected (NotDetected) Ur Amphetamines Screen Not Detected (NotDetected) U Methamphetamines Scrn Not Detected (NotDetected) U Benzodiazepines Scrn Not Detected (NotDetected) Urine Cocaine Screen Not Detected (NotDetected) U Marijuana (THC) Screen Detected H (NotDetected) Serum Alcohol mg/dL Disposition Clinical Impression: Leg weakness, bilateral, Myopathy Disposition: Left Against Medical Advice Condition: Undetermined Prescriptions: Cyclobenzaprine [Flexeril] 10 mg PO TID #15 tab HYDROcodone/APAP 5-325MG [Hunter 5-325] 1 tab PO Q6HR PRN 3 Days #12 tab PRN Reason: Pain Is patient prescribed a controlled substance at d/c from ED?: Yes When asked, does pt state using other controlled substances?: No If prescribed controlled substance>3 days was MAPS reviewed?: Prescribed <3 Days If opioid is for acute pain is fill amount 7 days or less?: Yes If Rx opioid, was Start Talking consent form obtained?: Yes Referrals: [facility],Clinic [Primary Care Provider] - 1-2 days
[2022-03-14 16:32] LABS: Basophils # (A) 0.1 k/uL (0-0.2); Basophils % (A) 3 %; Eosinophils # (A) 0.1 k/uL (0-0.7); Eosinophils % (A) 1 %; HCT 41.4 % (39.0-53.0); HGB 13.4 gm/dL (13.0-17.5); Lymphocytes # (A) 0.5 k/uL (1.0-4.8); Lymphocytes % (A) 10 %; MCH 27.7 pg (25.0-35.0); MCHC 32.5 g/dL (31.0-37.0); MCV 85.3 fL (80.0-100.0); Mean Platelet Volume 7.9; Monocytes # (A) 0.8 k/uL (0-1.0); Monocytes % (A) 15 %; Neutrophils # (A) 3.7 k/uL (1.3-7.7); Neutrophils % (A) 69 %; Platelet Count 231 k/uL (150-450); RBC 4.85 m/uL (4.30-5.90); RDW 14.9 % (11.5-15.5); WBC 5.4 k/uL (3.8-10.6)
[2022-03-14 16:47] LABS: ALT 62 U/L (4-49); AST 85 U/L (17-59); African American GFR (CKD) >90 (>60 ml/min/1.73 sqM); Albumin 4.7 g/dL (3.5-5.0); Alcohol <10 mg/dL; Alkaline Phosphatase 69 U/L (38-126); Anion Gap 13 mmol/L; Blood Urea Nitrogen 6 mg/dL (9-20); Calcium 9.3 mg/dL (8.4-10.2); Carbon Dioxide 21 mmol/L (22-30); Chloride 98 mmol/L (98-107); Creatine Kinase 698 U/L (55-170); Glucose 115 mg/dL (74-99); Magnesium 1.8 mg/dL (1.6-2.3); Non-African American GFR(CKD) >90 (>60 ml/min/1.73 sqM); Phosphorus 3.3 mg/dL (2.5-4.5); Potassium 4.2 mmol/L (3.5-5.1); Sodium 132 mmol/L (137-145); Total Bilirubin 0.5 mg/dL (0.2-1.3)
[2022-03-14 16:54] LABS: Partial Thromboplastin Time 22.7 sec (22.0-30.0); Prothrombin Time 11.3 sec (9.0-12.0)
[2022-03-14 17:04] LABS: Creatine Kinase MB 7.7 ng/mL (0.0-2.4); Troponin I <0.012 ng/mL (0.000-0.034)
[2022-03-14 17:15] LABS: Appearance,Urine Clear (Clear); Bilirubin,Urine Negative (Negative); Blood,Urine Negative (Negative); Color,Urine Light Yellow; Glucose,Urine (UA) Negative (Negative); Ketones,Urine Negative (Negative); Leukocyte Esterase,Urine Negative (Negative); Nitrite,Urine Negative (Negative); PH, Urine 5.5 (5.0-8.0); Protein,Urine Negative (Negative); Specific Gravity,Urine 1.004 (1.001-1.035); Urobilinogen,Urine <2.0 mg/dL (<2.0)
[2022-03-14 17:24] LABS: Amphetamine Screen,Urine Not Detected (NotDetected); Barbiturate Screen,Urine Not Detected (NotDetected); Benzodiazepines Screen,Urine Not Detected (NotDetected); Cocaine Screen,Urine Not Detected (NotDetected); Methadone Screen, Urine Not Detected (NotDetected); Opiate Screen,Urine Not Detected (NotDetected); Oxycodone Screen, Urine Not Detected (NotDetected); Phencyclidine Screen,Urine Not Detected (NotDetected); Tricyclic Antidepressant,Urine Not Detected (NotDetected); Urn Cannabinoid Scrn Detected (NotDetected)
--- NOTE | 2022-03-14 18:24 | US ---
EXAMINATION TYPE: US venous doppler duplex LE LT DATE OF EXAM: 03/14/2022 5:29 PM COMPARISON: NONE CLINICAL HISTORY: Led pain, possible DVT. Left leg pain SIDE PERFORMED: Left TECHNIQUE: The lower extremity deep venous system is examined utilizing real time linear array sonog brandon with graded compression, doppler sonography and color-flow sonography. VESSELS IMAGED: Common Femoral Vein Deep Femoral Vein Greater Saphenous Vein * Femoral Vein Popliteal Vein Small Saphenous Vein * Proximal Calf Veins (* superficial vessels) Left Leg: Negative for DVT IMPRESSION: No evidence of deep vein thrombosis in the left leg.
--- NOTE | 2022-03-14 20:08 | CT ---
EXAMINATION TYPE: CT lumbar spine wo con DATE OF EXAM: 03/14/2022 COMPARISON: None HISTORY: B/L leg pain and weakness CT DLP: 797.5 mGycm Automated exposure control for dose reduction was used. Images obtained from T12 through S2 vertebra with no contrast. The lumbar vertebra have fairly normal alignment. There is slight levoscoliosis. There is vacuum disc at L2-3. No significant disc space narrowing. There is degenerative hypertrophic spurring anteriorly throughout the lumbar spine. Facet joints are intact. There is no lumbar paraspinal mass. Sacroiliac joints are intact. No focal bone destruction. There is posterior concentric disc herniation at L3-4 and L4-5. There is developmentally adequate spinal canal and no significant spinal stenosis. Abdomina l aorta is atheromatous. IMPRESSION: Spondylotic changes. Multilevel posterior disc bulge and herniation. No significant spinal stenosis.
== END 2022-03-14 21:10 | disposition left against medical advice (07) ==
LOC: EC 10:13
DX: M62.81 Muscle weakness (generalized) (principal); G72.9 Myopathy, unspecified; I10 Essential (primary) hypertension; J44.9 Chronic obstructive pulmonary disease, unspecified; K21.9 Gastro-esophageal reflux disease without esophagitis; F17.200 Nicotine dependence, unspecified, uncomplicated; Z53.29 Procedure and treatment not carried out because of patient's decision for other reasons; Z79.51 Long term (current) use of inhaled steroids; Z79.899 Other long term (current) drug therapy
CPT/HCPCS: 36415; 72131; 80053; 80306; 80320; 81003; 82550; 82553; 83605; 83735; 84100; 84443; 84484; 85025; 85379; 85610; 85730; 93005; 99285

== ENCOUNTER 2023-12-21 09:59 | Emergency (ER) | payer OTHER ==
--- NOTE | 2023-12-21 10:28 | ED ---
Recheck HPI - General Chief Complaint: Recheck/Abnormal Lab/Rx Stated Complaint: Fall-R sided rib pain Time Seen by Provider: 12/21/23 10:10 Source: patient, RN notes reviewed Mode of arrival: ambulatory Limitations: no limitations - History of Present Illness Initial Comments: 63-year-old male with history of COPD presenting with right rib pain status post mechanical fall 4 days ago. States he walks with a cane and had a trip and fall, crushing his right ribs on his kitchen counter. He has been having pain since then, worse with inspiration. He also states he has had an increase increase in cough for the past day. He has a history of COPD, he is a current "chain smoker" and takes albuterol as needed for shortness of breath. Denies fever, chills, chest pain, shortness of breath. He was sent today by urgent care who confirmed at least 2 right-sided rib fractures on x-ray and advised him to come to the ER for chest CT. he is also complaining of abrasion on his left forearm that is draining pus. - Related Data Home Medications Medication Instructions Recorded Confirmed Albuterol Inhaler [Ventolin Hfa 2 puff INHALATION RT-Q6H PRN 10/29/16 05/20/18 Inhaler] Ipratropium/Albuterol Sulfate 1 puff INHALATION RT-QID 05/28/17 05/20/18 [Combivent Respimat Inhaler] Ranitidine HCl [Zantac] 150 mg PO BID 05/28/17 05/20/18 Celecoxib [CeleBREX] 200 mg PO DAILY 05/20/18 05/20/18 Gabapentin [Neurontin] 600 mg PO TID 05/20/18 05/21/18 Previous Rx's Medication Instructions Recorded Cyclobenzaprine [Flexeril] 10 mg PO TID #15 tab 03/14/22 HYDROcodone/APAP 5-325MG [[place] 1 tab PO Q6HR PRN 3 Days #12 tab 03/14/22 5-325] Cephalexin [Keflex] 500 mg PO Q12HR 7 Days #14 cap 12/21/23 Cyclobenzaprine [Flexeril] 10 mg PO TID PRN #15 tab 12/21/23 Lidocaine 5% Patch [Lidoderm 5% 1 patch TOPICAL DAILY 7 Days #7 12/21/23 Patch] patch Allergies Allergy/AdvReac Type Severity Reaction Status Date / Time No Known Allergies Allergy Verified 12/21/23 10:05 Review of Systems ROS Statement: Those systems with pertinent positive or pertinent negative responses have been documented in the HPI. ROS Other: All systems not noted in ROS Statement are negative. Past Medical History Past Medical History: Asthma, COPD, GERD/Reflux, Hypertension Additional Past Medical History / Comment(s): left arm pain with numbness 4th and 5 th digits with weakness left hand,partial numbness to 3rd digit left hand,pain with grasping objects,no longer on b/p meds History of Any Multi-Drug Resistant Organisms: None Reported Past Surgical History: Orthopedic Surgery Additional Past Surgical History / Comment(s): lump unsuccefully removed from left bicep,rt knee arthroscopic,vasectomy,hemorrhoidectiomy Past Anesthesia/Blood Transfusion Reactions: No Reported Reaction Past Psychological History: No Psychological Hx Reported Smoking Status: Current every day smoker Past Alcohol Use History: Occasional Past Drug Use History: None Reported - Past Family History Mother Family Medical History: Cancer Father Family Medical History: Cancer Sister(s) Family Medical History: Myocardial Infarction ([place]) General Exam Limitations: no limitations General appearance: alert, in no apparent distress Head exam: Present: atraumatic, normocephalic, normal inspection Eye exam: Present: normal appearance, PERRL, EOMI. Absent: scleral icterus, conjunctival injection, periorbital swelling ENT exam: Present: normal exam, mucous membranes moist Neck exam: Present: normal inspection. Absent: tenderness, meningismus, lymphadenopathy Respiratory exam: Present: normal lung sounds bilaterally, chest wall tenderness (Mild contusion present on posterior right rib with tenderness to palpation.). Absent: respiratory distress, wheezes, rales, rhonchi, stridor Cardiovascular Exam: Present: regular rate, normal rhythm, normal heart sounds. Absent: systolic murmur, diastolic murmur, rubs, gallop, clicks GI/Abdominal exam: Present: soft, normal bowel sounds. Absent: distended, tenderness, guarding, rebound, rigid Extremities exam: Present: normal inspection, full ROM, normal capillary refill. Absent: tenderness, pedal edema, joint swelling, calf tenderness Neurological exam: Present: alert, oriented X3, CN II-XII intact Psychiatric exam: Present: normal affect, normal mood Skin exam: Present: warm, dry, intact, normal color, rash (4 cm abrasion with yellow crusting and minimal active drainage) Course Vital Signs 12/21/23 12/21/23 10:02 10:29 Temperature 98 F Pulse Rate 85 Respiratory 20 18 Rate Blood Pressure 140/85 O2 Sat by Pulse 97 Oximetry Medical Decision Making - Medical Decision Making Was pt. sent in by a medical professional or institution (BERNA Ballesteros, DEPLOYMENT SPECIALIST, urgent care, hospital, or intermediate...) When possible be specific @ -Sent by urgent care for multiple rib fractures Did you speak to anyone other than the patient for history (EMS, parent, family, police, friend...)? What history was obtained from this source @ -No Did you review nursing and triage notes (agree or disagree)? Why? @ -I reviewed and agree with nursing and triage notes Were old charts reviewed (outside hosp., previous admission, EMS record, old EKG, old radiological studies, urgent care reports/EKG's, intermediate records)? Report findings @ -No old charts were reviewed Differential Diagnosis (chest pain, altered mental status, abdominal pain women, abdominal pain men, vaginal bleeding, weakness, fever, dyspnea, syncope, headache, dizziness, GI bleed, back pain, seizure, CVA, palpatations, mental health, musculoskeletal)? @ -Rib fracture, flail chest, pneumothorax, pneumonia, cellulitis EKG interpreted by me (3pts min.). @ -None X-rays interpreted by me (1pt min.). @ -None done CT interpreted by me (1pt min.). @ -CT performed and revealed fractures of right ribs 8, 9, 10, and 11 with a small right-sided pleural effusion and pleural thickening, no evidence for pneumothorax U/S interpreted by me (1pt. min.). @ -None done What testing was considered but not performed or refused? (CT, X-rays, U/S, labs)? Why? @ -None What meds were considered but not given or refused? Why? @ -None Did you discuss the management of the patient with other professionals (professionals i.e. BERNA Ballesteros, DEPLOYMENT SPECIALIST, lab, RT, psych nurse, social work manager, dry press operator helper, teacher, [place] police officer, home health care case manager)? Give summary @ -No Was smoking cessation discussed for >3mins.? @ -No Was critical care preformed (if so, how long)? @ -No Were there social determinants of health that impacted care today? How? (Homelessness, low income, unemployed, alcoholism, drug addiction, transportation, low edu. Level, literacy, decrease access to med. care, skilled nursing, rehab)? @ -No Was there de-escalation of care discussed even if they declined (Discuss DNR or withdrawal of care, Hospice)? DNR status @ -No What co-morbidities impacted this encounter? (DM, HTN, Smoking, COPD, CAD, Cancer, CVA, ARF, Chemo, Hep., AIDS, mental health diagnosis, sleep apnea, morbid obesity)? @ -None Was patient admitted / discharged? Hospital course, mention meds given and route, prescriptions, significant lab abnormalities, going to OR and other pertinent info. @ -Patient was discharged. Patient was seen and evaluated for right rib pain status post mechanical fall yesterday. Vital signs are within normal limits. No red flag symptoms or signs of labored breathing. No sign of flail chest. Patient was given IM Norflex and morphine for pain. CT revealed fractures of right ribs 8, 9, 10, and 11 with small right-sided pleural effusion and pleural thickening, no evidence for pneumothorax. Upon reevaluation, patient states pain is improved. Diagnosis of multiple rib fractures discussed with patient. Patient states he would like to be discharged at this time. Strict return/alarm symptoms discussed with patient in detail and he shows understanding and agrees to plan. Discussed importance of using incentive spirometer 10 times hourly while awake. Patient was given Tylenol 3 starter pack for pain. Prescribed lidocaine patches and Flexeril. He was also sent to [facility] for infected abrasion of left forearm. Case discussed with my attending Dr. Paris. Patient was discharged in stable condition Undiagnosed new problem with uncertain prognosis? @ -No Drug Therapy requiring intensive monitoring for toxicity (Heparin, Nitro, Insulin, Cardizem)? @ -No Were any procedures done? @ -No Diagnosis/symptom? @ -Multiple rib fractures, infected abrasion on right forearm Acute, or Chronic, or Acute on Chronic? @ -Acute Uncomplicated (without systemic symptoms) or Complicated (systemic symptoms)? @ -Uncomplicated Side effects of treatment? @ -No Exacerbation, Progression, or Severe Exacerbation? @ -No Poses a threat to life or bodily function? How? (Chest pain, [place], [place], pneumonia, PE, COPD, DKA, ARF, appy, cholecystitis, CVA, Diverticulitis, Homicidal, Suicidal, threat to staff... and all critical care pts) @ -Low likelihood Disposition Clinical Impression: Multiple rib fractures Disposition: HOME SELF-CARE Condition: Stable Instructions (If sedation given, give patient instructions): Rib Fracture (ED) Additional Instructions: Please use incentive spirometer 10 times hourly while awake. Use prescribed medication for pain as needed. Please return to the Emergency Department if symptoms worsen or any other concerns. Prescriptions: Cyclobenzaprine [Flexeril] 10 mg PO TID PRN #15 tab PRN Reason: Muscle Spasm Cephalexin [Keflex] 500 mg PO Q12HR 7 Days #14 cap Lidocaine 5% Patch [Lidoderm 5% Patch] 1 patch TOPICAL DAILY 7 Days #7 patch Is patient prescribed a controlled substance at d/c from ED?: No Referrals: [facility],Clinic [Primary Care Provider] - 1-2 days Time of Disposition: 11:29
[2023-12-21 10:32] VITALS: RESP 18
[2023-12-21] MEDS: ORPHENADRINE 30 MG/ML 2 ML VIAL IM STA (10:36)
[2023-12-21] MEDS: MORPHINE SULFATE 2 MG/ML SYRINGE IM STA (10:37)
--- NOTE | 2023-12-21 11:07 | CT ---
EXAMINATION TYPE: CT chest wo con DATE OF EXAM: 12/21/2023 COMPARISON: None HISTORY: Rib fractures, s/p fall in his kitchen on Sunday CT DLP: [address] of the chest was performed with lung and mediastinal window settings submitted. The la ck of contrast limits evaluation of the vascular, mediastinal and parenchymal structures including th e upper abdomen. LUNGS: Moderate emphysematous changes. Small right-sided pleural effusion and pleural thickening. The lungs are clear and free of infiltrate. No atelectasis. No pulmonary nodule or mass is detected. No CT evidence of interstitial lung disease. MEDIASTINUM/CHENCHO: Thoracic aorta is of normal caliber with limited evaluation given lack of contrast . The heart is not enlarged. No evidence for mediastinal mass. No lymph nodes greater than 1cm. UPPER ABDOMEN: No significant abnormality is seen. OTHER: Fractures of right ribs 8, 9, 10 and 11. IMPRESSION: 1. Fractures of right ribs 8, 9, 10 and 11. Small right-sided pleural effusion and pleural thickenin g. No evidence for pneumothorax.
[2023-12-21] MEDS: ACET/COD 300 MG/30 MG STARTER PACK 6 TAB BTL PO STA (11:33)
[2023-12-21 11:40] VITALS: BP 137/76; PULSE 82; TEMP 98.1
== END 2023-12-21 11:40 | disposition home or self-care (01) ==
LOC: EC 09:59
DX: S22.41XA Multiple fractures of ribs, right side, initial encounter for closed fracture (principal); S50.811A Abrasion of right forearm, initial encounter; J90 Pleural effusion, not elsewhere classified; F17.200 Nicotine dependence, unspecified, uncomplicated; W01.198A Fall on same level from slipping, tripping and stumbling with subsequent striking against other object, initial encounter; Y93.01 Activity, walking, marching and hiking
CPT/HCPCS: 71250; 99284; 96372 ×2; J2360; J2270

== ENCOUNTER → 2024-10-30 | Outpatient (CLI) | payer OTHER ==
[2024-10-30 07:59] VITALS: RESP 16
[2024-10-30 08:09] VITALS: BP 129/78; PULSE 79
--- NOTE | 2024-10-30 09:00 | XR ---
EXAMINATION TYPE: XR lumbar spine 3V DATE OF EXAM: 10/30/2024 8:44 AM COMPARISON: None CLINICAL INDICATION: Male, 64 years old with history of M54.16 RADICULOPATHY, LUMBAR REGION; [facility], carla n FINDINGS: Atherosclerotic calcifications in the abdominal aorta. Calcifications left mid abdomen, indeterminate , but possible left renal calculi. 5 lumbar type vertebral bodies. Degenerated levoconvex curvature. Degenerative disc disease fairly severe along the right side at L2-L3 as a result. Otherwise, mild de generative disc disease elsewhere throughout the lumbar spine. Moderate facet arthropathy mid to lowe r lumbar spine. Vertebral body heights are preserved and alignment is maintained. IMPRESSION: 1. Degenerated levoconvex curvature. As a result, degenerative disc disease is severe towards the rig ht at L2-L3. 2. Moderate facet arthropathy mid to lower lumbar spine. 3. No vertebral compression collapse or malalignment. [facility], Workstation: [facility], 10/30/2024 8:58 AM
--- NOTE | 2024-10-30 15:12 | P.PAINPG ---
PQRS Measure Charge Sheet Comment: HISTORY OF PRESENT ILLNESS: A 64 yr old male as a referral from the [facility] presents today w severe and chronic LBP > 1 yr secondary to radiculopathy, spondylosis and facet arthropathy without myelopathy for evaluation. Pt states pain level is provoked at 6 /10 in intensity, constant, localized in the lumbar spine, predominantly axial, achy in character w occasional shooting pain towards the BL thighs. Pain is provoked by over activity, sitting/ standing/ walking for periods > 30 min. Pain is allevi ated by PT x 6 wks which ended in May 2024, physician guided home exercises 4-5 times weekly since May 2024, heat, medications, topical, Cannabis products, repositioning and rest . Oswestry axial pain score at 32. PMH: OA, Asthma, COPD, GERD, HTN, Vitamin D Deficiency, BPH PSH: R Knee Arthroscopy, Vasectomy, Hemorrhoidectomy SH: Daily tobacco use, Occ ETOH use, No illicit drug use FH: Mo- CA. Fa- CA. Sis- OR. All: See list Meds: See list include Lyrica, Baclofen, Tyl, Ibu, THC, Lidoderm REVIEW OF ORGAN SYSTEMS: CONSTITUTIONAL: No fevers or chills. No recent weight loss . NEUROLOGICAL: + numbness and tingling along the distal extremities. No seizure disorders or headaches. MUSCULOSKELETAL: + pain PSYCHIATRIC: Denies current depression or suicidal thoughts. Physical Examinations : Constitutional : Cooperative , not in acute distress . Neurologic : Cranial nerve II to XII intact. No focal neurological deficits. Psychiatric : alert & oriented x 3. Matching mood & appropriate affect. Judgment & insight intact. Musculoskeletal : Cervical Spine Motor strength in the deltoid and biceps: Normal right side. Normal Left side Motor strength biceps and the wrist ext ensors: Normal right side . Normal left side Motor strength in the triceps muscle: Normal right side. Normal left side Deep tendon reflexes: Normal at the biceps. Normal at Brachioradialis. Normal at triceps Vertebral body tenderness to deep palpation over Cervical facet loading test: positive bilaterally Spurling test: positive bilaterally Neck distraction test: positive bilaterally Yeni sign: positive bilaterally Lumbar spine Motor strength lower extremities ,thigh and legs 5/5 Right side , 5/5 Left side Deep tendon reflexes : Normal Knee Jerk. Normal Ankle Jerk Vertebral body tenderness over [place]cido Test positive Lumbar facet Loading Test: positive Right / positive Left Range of motion of the lumbar spine Flexion 30 degrees, extension 10 degrees Straight Leg Raise test: Left/ Right positive at degrees Maxine test: positive right / positive left. Severe tenderness over the Sacroiliac joint on the Right / Left sides Gaenslen test: positive bilaterally Seated flexion test: positive bilaterally. Sacral spine : Severe tenderness over the Sacroiliac joint: right side / left side Range of motion: Flexion of the lumbar spine <60 degrees Range of motion: Extension of the lumbar spine <20 degrees Gaenslen's Test positive Maxine test: positive right side / left side Thigh Thrust Test Sacral Thrust Test Imaging: CT non contrast lumbar spine from 03/14/22 reviewed Assessment/ Plan : L3-L5 radiculopathy Recommendation of lumbar x ray M54.16. All questions answered. I have spent greater than 30 minutes on patient care today. Dr Garcia was available by phone for the evaluation of this patient. The time was used to review the medical records including relevant urine studies and Prescription history (MAPs), review of the available imaging, evaluation and examination of the patient, coordination of care with the medical staff and if applicable referring physicians, as well as creation of the medical record - Pain Location Bilateral Lower Back Non-Pharmacological Interventions: Chiropractic Treatment, Heat, Inactivity, Physical Therapy, Position/Reposition Pharmacological Interventions: PRN Medication, Scheduled Medication, Topical Medication PQRS Narrative: Smoking Status Current every day smoker Hx Alcohol Use (MH) Yes Home Medications: Ambulatory Orders Albuterol Inhaler [Ventolin Hfa Inhaler] 2 puff INHALATION RT-Q6H PRN 10/29/16 Ipratropium/Albuterol Sulfate [Combivent Respimat Inhaler] 1 puff INHALATION RT- QID 05/28/17 Ranitidine HCl [Zantac] 150 mg PO BID 05/28/17 Celecoxib [CeleBREX] 200 mg PO DAILY 05/20/18 Gabapentin [Neurontin] 600 mg PO TID 05/20/18 Cyclobenzaprine [Flexeril] 10 mg PO TID #15 tab 03/14/22 HYDROcodone/APAP 5-325MG [[place] 5-325] 1 tab PO Q6HR PRN 3 Days #12 tab 03/14/22 Cephalexin [Keflex] 500 mg PO Q12HR 7 Days #14 cap 12/21/23 Cyclobenzaprine [Flexeril] 10 mg PO TID PRN #15 tab 12/21/23 Lidocaine 5% Patch [Lidoderm 5% Patch] 1 patch TOPICAL DAILY 7 Days #7 patch 12/21/23 diazePAM [Valium] 5 mg PO DAILY 1 Days #2 tab 10/30/24 Controlled Substance Measures - Controlled Substance Measures Is patient prescribed a controlled substance at discharge?: Yes When asked, does pt state using other controlled substances?: Yes If prescribed controlled substance>3 days was MAPS reviewed?: Prescribed <3 Days
== END ==
LOC: PNWHC3 07:14
PROVIDERS: ATTEND Specialist
DX: M51.16 Intervertebral disc disorders with radiculopathy, lumbar region (principal); M47.16 Other spondylosis with myelopathy, lumbar region; F17.200 Nicotine dependence, unspecified, uncomplicated
CPT/HCPCS: 72100; 99211

== ENCOUNTER → 2024-11-07 | Outpatient (CLI) | payer OTHER ==
--- NOTE | 2024-11-09 11:24 | MR ---
INDICATION: Patient age:Male; 64 years old; Reason for study: M54.16 RADICULOPATHY, LUMBAR REGION; [facility]. COMPARISONS: Lumbar spine radiograph 10/30/2024, CT lumbar spine 03/14/2022. TECHNIQUE: Multi planar, multi sequence imaging was performed utilizing: T1-weighted, T2-weighted, a nd turbo inversion recovery imaging of the lumbar spine. The patient was not given contrast. FINDINGS: The lumbar vertebral bodies do have preserved heights. No spondylolisthesis. Mild levoscol iotic curvature of the lumbar spine with apex at L2-L3. Heterogenous bone marrow signal. Type I and t ype II Modic changes involving the endplates of the L1 and L2 vertebral bodies. Multilevel anterior o steophytosis. Multilevel disc desiccation is present. Spina bifida occulta at L5. Additionally there is a right L5 pars defect and prior CT. The conus medullaris and the distal spinal cord do appear un remarkable with regards to their signal intensity and morphology. T12-L1: No significant disc pathology. No central canal or neural foraminal stenosis. L1-L2: Broad-based disc bulge with ligamentum flavum buckling and bilateral facet arthropathy contri bute to mild central canal stenosis. Right neural foramen is patent. Mild left neural foraminal steno sis. L2-L3: Broad-based disc bulge with bilateral facet arthropathy resulting in minimal central canal na rrowing. Mild bilateral neural foraminal stenosis. L3-L4: Tiny central disc protrusion superimposed upon a broad-based disc bulge. Ligamenta flava arreola ling and bilateral facet arthropathy. Resultant mild central canal stenosis. [id number] left ne ural foraminal stenosis. Mild right neural foraminal stenosis. L4-L5: Small central disc protrusion superimposed upon a broad-based disc bulge. There is mild efface ment of the anterior thecal sac. Ligament flavum buckling and bilateral facet arthropathy. Minimal ce ntral canal stenosis. The right neural foramen is patent. Mild to moderate left neural foraminal sten osis. L5-S1: The intervertebral disc appears round on its contour posteriorly without significant mass eff ect upon the thecal sac. Facet joints are enlarged. Neural canals do remain patent. Other significant findings: Right adrenal gland 2.5 cm lesion redemonstrated which demonstrated appro ximately -11 Houn[address] unit on prior CT consistent with a lipid rich adenoma. Horseshoe kidney. IMPRESSION: 1. Moderate multilevel disc degeneration with associated osteoarthritic changes as described above. 2. Spina bifida occulta with right L5 pars defect. No spondylolisthesis. 3. Redemonstration of a right adrenal gland lipid rich adenoma. 4. Horseshoe kidney. [facility], , 11/09/2024 11:22 AM
== END | disposition home or self-care (01) ==
LOC: RADMRIMAIN 13:42
PROVIDERS: ATTEND Specialist
DX: M51.16 Intervertebral disc disorders with radiculopathy, lumbar region (principal); Q76.0 Spina bifida occulta; Q63.1 Lobulated, fused and horseshoe kidney; D35.01 Benign neoplasm of right adrenal gland
CPT/HCPCS: 72148

== ENCOUNTER → 2024-11-20 | Outpatient (CLI) | payer OTHER ==
[2024-11-20 07:56] VITALS: BP 157/89; PULSE 79; RESP 16; TEMP 97.1
--- NOTE | 2024-11-20 16:54 | P.PAINPG ---
PQRS Measure Charge Sheet Comment: HISTORY OF PRESENT ILLNESS: A 64 yr old male as a referral from the [facility] presents today w severe and chronic LBP > 1 yr secondary to spinal bifida occulta, radiculopathy, spondylosis and facet arthropathy without myelopathy for evaluation. Pt states pain level is provoked at 9 /10 in intensity, constant, localized in the lumbar spine, predominantly axial, achy in character w occasional shooting pain towards the BL hips and LEs. Pain is provoked by over activity, sitting/ standing/ walking for periods > 30 min. Pain is alleviated by PT x 6 wks which ended in May 2024, physician guided home exercises daily since May 2024, heat, medications, topical, Cannabis products, repositioning and rest . Oswestry axial pain score at 32. Interventional procedures include Medications include Lyrica, Baclofen, Tyl, Ibu, THC, Lidoderm REVIEW OF ORGAN SYSTEMS: CONSTITUTIONAL: No fevers or chills. No recent weight loss. NEUROLOGICAL: + numbness and tingling along the distal extremities. No seizure disorders or headaches. MUSCULOSKELETAL: + pain PSYCHIATRIC: Denies current depression or suicidal thoughts. Physical Examinations : Constitutional : Cooperative , not in acute distress . Neurologic : Cranial nerve II to XII intact. No focal neurological deficits. Psychiatric : alert & oriented x 3. Matching mood & appropriate affect. Judgment & insight intact. Musculoskeletal : Cervical Spine Motor strength in the deltoid and biceps: Normal right side. Normal Left side Motor strength biceps and the wrist extensors: Normal right side . Normal left side Motor strength in the triceps muscle: Normal right side. Normal left side Deep tendon reflexes: Normal at the biceps. Normal at Brachioradialis. Normal at triceps Vertebral body tenderness to deep palpation over Cervical facet loading test: positive bilaterally Spurling test: positive bilaterally Neck distraction test: positive bilaterally Yeni sign: positive bilaterally Lumbar spine Motor strength lower extremities ,thigh and legs 5/5 Right side , 5/5 Left side Deep tendon reflexes : Normal Knee Jerk. Normal Ankle Jerk Vertebral body tenderness over L3 Salcido Test positive BL L3-L4 Lumbar facet Loading Test: positive Right / positive Left Range of motion of the lumbar spine Flexion 30 degrees, extension 10 degrees Straight Leg Raise test: Left/ Right positive at degrees Maxine test: positive right / positive left. Severe tenderness over the Sacroiliac joint on the Right / Left sides Gaenslen test: positive bilaterally Seated flexion test: positive bilaterally. Sacral spine : Severe tenderness over the Sacroiliac joint: right side / left side Range of motion: Flexion of the lumbar spine <60 degrees Range of motion: Extension of the lumbar spine <20 degrees Gaenslen's Test positive Maxine test: positive right side / left side Thigh Thrust Test Sacral Thrust Test Imaging: CT non contrast lumbar spine from 03/14/22 reviewed MRI non contrast lumbar spine from 11/07/24 reviewed Assessment/ Plan : L3-L5 radiculopathy, Spinal bifida occulta Recommendation of MIMA L3-L4 #1. Risks, benefits of procedure discussed and patient verbalized understanding. Protocol for discontinuation/continuation of medications surrounding procedure discussed. All questions answered. I have spent greater than 30 minutes on patient care today. Dr Garcia was available by phone for the evaluation of this patient. The time was used to review the medical records including relevant urine studies and Prescription history (MAPs), review of the available imaging, evaluation and examination of the patient, coordination of care with the medical staff and if applicable referring physicians, as well as creation of the medical record - Pain Location Bilateral Lower Back Non-Pharmacological Interventions: Heat, Home Exercise, Inactivity, Physical Therapy, Position/Reposition, Sitting, Stretching Pharmacological Interventions: PRN Medication, Topical Medication PQRS Narrative: Smoking Status Current every day smoker Hx Alcohol Use (MH) Yes Home Medications: Ambulatory Orders Albuterol Inhaler [Ventolin Hfa Inhaler] 2 puff INHALATION RT-Q6H PRN 10/29/16 Ipratropium/Albuterol Sulfate [Combivent Respimat Inhaler] 1 puff INHALATION RT- QID 05/28/17 Ranitidine HCl [Zantac] 150 mg PO BID 05/28/17 Gabapentin [Neurontin] 600 mg PO TID 05/20/18 Cephalexin [Keflex] 500 mg PO Q12HR 7 Days #14 cap 12/21/23 diazePAM [Valium] 5 mg PO DAILY 1 Days #2 tab 10/30/24 Baclofen 10 mg PO TID 11/20/24 Controlled Substance Measures - Controlled Substance Measures Is patient prescribed a controlled substance at discharge?: No
== END ==
LOC: PNWHC3 07:33
PROVIDERS: ATTEND Specialist
DX: M47.26 Other spondylosis with radiculopathy, lumbar region (principal); Q76.0 Spina bifida occulta; F17.200 Nicotine dependence, unspecified, uncomplicated
CPT/HCPCS: 99211

== ENCOUNTER → 2024-12-11 | Outpatient (CLI) | payer OTHER ==
--- NOTE | 2024-12-11 12:06 | PE ---
EXAMINATION TYPE: PET CT fusion skull to thigh DATE OF EXAM: 12/11/2024 COMPARISON: CT chest 12/21/2023 Prior PET/CT: No prior PET/CT dislocation. CLINICAL INDICATION: Male, 64 years old with history of melanoma, TECHNIQUE: Following the intravenous administration of mCi of F-18 FDG, whole body images are perfor med PET CT fusion skull to thigh. Images are reviewed on the computer in the coronal, axial, and sag ittal planes. Reconstructed rotating images are created on independent workstation and reviewed on [facility] computer. A localization and attenuation correction CT is performed in conjunction with the PET scan. DLP: 82261.9 mGycm SCAN: Initial Blood glucose: 107 mg/dL Average Mediastinum SUV: 1.75 Average Liver SUV: 2.04 FINDINGS: NECK: There is mild uptake within the left torus tubarius image 60, SUV 4.92. There is increased uptake within the soft tissues posterior to the spinous process upper cervical spi ne, image 84, SUV 5.68. THORAX: There is a faint punctate area of uptake within the right upper lung field, image 135, SUV 1. 96. This is mildly above background but may be too small for adequate evaluation of the nodule size. Early metastasis should be considered. There is marked uptake within the right suprahilar region image 145, SUV 10.4 compatible with metasta sis ABDOMEN: No abnormal uptake PELVIS: No abnormal uptake Lower extremities: No abnormal uptake. OSSEOUS STRUCTURES: No abnormal uptake LOCALIZATION CT: Horseshoe kidney present. Diverticulosis without acute diverticulitis. COMPARISON: No significant change IMPRESSION: 1. No suspicious uptake in the region of the left jaw at the patient's reported primary melanoma. 2. Marked uptake within the right suprahilar lymph node suspicious for metastasis. 3. Tiny punctate density with mildly increased uptake right upper lobe may be an early metastasis. 4. Uptake within the soft tissues posterior neck are nonspecific. Soft tissue metastasis and muscular activity could be considered. 5. Nonspecific focal uptake left torus tubarius. Soft tissue metastasis not excluded [facility], , 12/11/2024 12:04 PM
== END | disposition home or self-care (01) ==
LOC: RADPETMAIN 06:42
PROVIDERS: ATTEND Family Medicine
DX: C43.0 Malignant melanoma of lip (principal); J98.4 Other disorders of lung; R59.0 Localized enlarged lymph nodes
CPT/HCPCS: 78815; A9552

== ENCOUNTER 2024-12-25 07:05 | Day surgery (SDC) | payer OTHER ==
[2024-12-23 10:00] VITALS: BMI 20.3
[~2024-12-25 07:05] MED LIST changes: -Pre Op ABX Message 1 EACH MISC MISCELLANE ONE
[2024-12-25 07:58] VITALS: RESP 16; TEMP 97.8
[2024-12-25] MEDS ORDERED: IOPAMIDOL M200 10 ML VIAL ONE (08:44)
[2024-12-25] MEDS ORDERED: methylPREDNISolone ACETATE 80 MG/ML 1 ML VIAL ONE (08:44)
--- NOTE | 2024-12-25 08:53 | P.PCN ---
Date of Procedure: 12/25/24 Procedure(s) Performed: PREOPERATIVE DIAGNOSIS: 1- Lumbar radiculopathy POSTOPERATIVE DIAGNOSIS: 1-lumbar radiculopathy PROCEDURE 1. Lumbar epidural steroid injection under fluoroscopic guidance at the L3-4 level. (Fluoroscopy imaging was available in radiology department) 2. Lumbar epidurogram. ANESTHESIA: Lidocaine 1% 3 and then only. EBL: Minimal PROCEDURE INDICATION: The patient with low back pain and radiculitis symptoms unresponsive to conservative treatment. Fluoroscopy was used to optimize visualization of the needle placement and to maximize safety. PROCEDURE DESCRIPTION / TECHNIQUE: The patient was seen and identified in the preoperative area. Risks, benefits, complications including but not limited to infections ,bleeding ,allergic reaction to the medications ,nerve damage and not complete pain releife , and alternatives were discussed with the patient. The patient agreed to proceed with the procedure and signed the consent, and vital signs were stable. Patient was taken to the OR and time out was completed. The patient was placed in the prone position on procedure table and a pillow was placed under the abdomen to reduce lumbar lordosis. The lumbosacral area was prepped and draped in the usual sterile fashion.ere closely monitored during the procedure. Vital signs was monitered during the entire procedure. Using anterior-posterior fluoroscopy, the L3-4 interlaminar space was identified and the skin over this site was marked and then infiltrated with 1% lidocaine subcutaneously. Subsequently, a 20-gauge Tuohy epidural needle was inserted and advanced toward the epidural space using the ``Loss of resistance technique and guided by AP and lateral fluoroscopy. The correct needle position in the epidural space was verified with the injection of 2 mL of the water soluble contrast dye Isovue 200 contrast and observing an excellent epidurogram with the epidural spread of the dye, after negative aspiration for blood and CSF and in the absence of paresthesias. Again after negative aspiration, a 6 ml mixture containing 80 mg of Depo-medrol ( Preservetive Free ), and 2 ml of preservative free Normal Saline, and 2 ml of preservative free lidocaine 1% solution was injected and a washout of epidurogram was seen. Needle was withdrawn intact, skin was cleansed, and bandages were applied. COMPLICATIONS: None DISPOSITION / PLANS: The patient was placed in a supine position and transferred to the recovery area in a stable condition for observation. There was no evidence of lower extremity motor or sensory deficit after the procedure. Patient was discharged from the recovery room after meeting discharge criteria. Home discharge instructions were given to the patient by the staff. The patient was reexamined prior to discharge. The patient will schedule a follow up in the clinic in 2-4 weeks.
[2024-12-25 09:13] VITALS: BP 116/90; PULSE 78
--- NOTE | 2024-12-25 10:35 | FL ---
Fluoroscopy INDICATION: Pain FINDINGS: Fluoroscopy time: 6.1 seconds. Total dose area product (DAP) in uGy*m?, mGy*cm? (or similar): 0.70915 Images obtained: 2. Images document a needle directed towards the lumbar spine. IMPRESSION: 1. Documentation of fluoroscopy. [facility], , 12/25/2024 10:33 AM
== END 2024-12-25 09:30 | disposition home or self-care (01) ==
LOC: ORPAIN 07:05
PROVIDERS: ATTEND Specialist
DX: M54.16 Radiculopathy, lumbar region (principal)
CPT/HCPCS: 62323; Q9966; J1010

== ENCOUNTER → 2025-01-12 | Outpatient (CLI) | payer OTHER ==
[2025-01-12 07:57] VITALS: BP 116/75; PULSE 89; RESP 14
--- NOTE | 2025-01-14 07:57 | P.PAINPG ---
PQRS Measure Charge Sheet Comment: HISTORY OF PRESENT ILLNESS: A 64 yr old wheelchair bound male as a referral from the [facility] presents today w severe and chronic LBP > 1 yr secondary to spinal bifida occulta, radiculopathy, spondylosis and facet arthropathy without myelopathy for evaluation s/p MIMA L3-L4 #1. Pt states he experienced 100 % pain relief x 2 wks s/p procedure. Pt states pain level is provoked at 6 /10 in intensity, intermittent, localized in the lumbar spine, predominantly axial, achy in character w occasional shooting pain towards the BL hips and LEs. Pain is provoked by over activity, sitting/ standing/ walking for periods > 30 min. Pain is alleviated by PT x 6 wks which ended in May 2024, physician guided home exercises daily since May 2024, heat, medications, topical, Cannabis products, use of a wheelchair for ambulatory assistance, repositioning and rest . Oswestry axial pain score at 32. Interventional procedures include MIMA L3-L4 x1 Medications include Lyrica, Baclofen, Tyl, Ibu, THC, Lidoderm, Cannabis REVIEW OF ORGAN SYSTEMS: CONSTITUTIONAL: No fevers or chills. No recent weight loss. NEUROLOGICAL: + numbness and tingling along the distal extremities. No seizure disorders or headaches. MUSCULOSKELETAL: + pain PSYCHIATRIC: Denies current depression or suicidal thoughts. Physical Examinations : Constitutional : Cooperative , not in acute distress . Neurologic : Cranial nerve II to XII intact. No focal neurological deficits. Psychiatric : alert & oriented x 3. Matching mood & appropriate affect. Judgment & insight intact. Musculoskeletal : Cervical Spine Motor strength in the deltoid and biceps: Normal right side. Normal Left side Motor strength biceps and the wrist extensors: Normal right side . Normal left side Motor strength in the triceps muscle: Normal right side. Normal left side Deep tendon reflexes: Normal at the biceps. Normal at Brachioradialis. Normal at triceps Vertebral body tenderness to deep palpation over Cervical facet loading test: positive bilaterally Spurling test: positive bilaterally Neck distraction test: positive bilaterally Yeni sign: positive bilaterally Lumbar spine Motor strength lower extremities ,thigh and legs 5/5 Right side , 5/5 Left side Deep tendon reflexes : Normal Knee Jerk. Normal Ankle Jerk Vertebral body tenderness over L3 Salcido Test positive BL L3-L4 Lumbar facet Loading Test: positive Right / positive Left Range of motion of the lumbar spine Flexion 30 degrees, extension 10 degrees Straight Leg Raise test: Left/ Right positive at degrees Maxine test: positive right / positive left. Severe tenderness over the Sacroiliac joint on the Right / Left sides Gaenslen test: positive bilaterally Seated flexion test: positive bilaterally. Sacral spine : Severe tenderness over the Sacroiliac joint: right side / left side Range of motion: Flexion of the lumbar spine <60 degrees Range of motion: Extension of the lumbar spine <20 degrees Gaenslen's Test positive Maxine test: positive right side / lef t side Thigh Thrust Test Sacral Thrust Test Imaging: CT non contrast lumbar spine from 03/14/22 reviewed MRI non contrast lumbar spine from 11/07/24 reviewed Assessment/ Plan : L3-L5 radiculopathy, Spinal bifida occulta Recommendation of LSO. Script provided. All questions answered. I have spent greater than 30 minutes on patient care today. Dr Garcia was available by phone for the evaluation of this patient. The time was used to review the medical records including relevant urine studies and Prescription history (MAPs), review of the available imaging, evaluation and examination of the patient, coordination of care with the medical staff and if applicable referring physicians, as well as creation of the medical record - Pain Location Bilateral Lower Back Non-Pharmacological Interventions: Heat, Physical Therapy Pharmacological Interventions: PRN Medication PQRS Narrative: Smoking Status Current every day smoker Hx Alcohol Use (MH) Yes Home Medications: Ambulatory Orders Ipratropium/Albuterol Sulfate [Combivent Respimat Inhaler] 1 puff INHALATION RT- QID 05/28/17 Baclofen 10 mg PO TID 11/20/24 Acetaminophen/Aspirin/Caffeine 1 dose PO DIRECTED PRN 12/23/24 Fluticasone Nasal [place] [Flonase Nasal [place]] 1 spray EA NOSTRIL DAILY 12/23/24 Loratadine 10 mg PO QAM 12/23/24 Mometasone/Formoterol [Dulera 200 Mcg-5 Mcg Inhaler] 2 puff INHALATION BID 12/23/24 Omeprazole [PriLOSEC] 20 mg PO AC-BID 12/23/24 Pregabalin [Lyrica] 200 mg PO QAM 12/23/24 Tamsulosin HCl [Flomax] 0.4 mg PO QAM 12/23/24 lisinopriL [Zestril] 40 mg PO QAM 12/23/24 traZODone HCL [Desyrel] 50 mg HS 01/12/25 Controlled Substance Measures - Controlled Substance Measures Is patient prescribed a controlled substance at discharge?: No
== END ==
LOC: PNWHC3 07:32
PROVIDERS: ATTEND Specialist
DX: M47.26 Other spondylosis with radiculopathy, lumbar region (principal); Q76.0 Spina bifida occulta; J30.89 Other allergic rhinitis; F12.90 Cannabis use, unspecified, uncomplicated; F17.200 Nicotine dependence, unspecified, uncomplicated; Z99.3 Dependence on wheelchair
CPT/HCPCS: 99211